=== PATIENT | female | born 1950 ===

== ENCOUNTER 2023-09-10 12:32 | Day surgery (SDC) | payer MEDICARE, OTHER ==
[~2023-09-10] VITALS: Ht 170.2 cm; Wt 70.8 kg
[~2023-09-10 12:32] MED LIST: BALANCED SALT IRRIG ONE; Balanced Salt Epinephrine Irrigation Solution 500 mL IR SCH; Lidocaine HCl/Pf 1% 5 ML VIAL XX SCH; Moxifloxacin HCL 0.5 MG/0.1 ML 0.4MLSYR LEFTEYE SCH; NS 500 ML IV ONE; PHENYLEPHRINE\\TROPICAMIDE\\TETRACAINE OPHTHALMIC DILATING SOLN LEFTEYE PRN; Povidone-Iodine 450 DROP/30 ML Solution LEFTEYE SCH
[2023-09-10] MEDS ORDERED: Simvastatin20 MG PO (13:47)
[2023-09-10] MEDS ORDERED: EUTHYROX75 MC1 PO (13:47)
[2023-09-10] MEDS ORDERED: ESTRADIOL42.5 GM (13:48)
[2023-09-10] MEDS ORDERED: [UNRECOGNIZED DRUG - OTHER] PO (13:48)
[2023-09-10] MEDS ORDERED: CALCIUM PO (13:48)
[2023-09-10] MEDS ORDERED: B COMPLEX VITAMIN (13:49)
[2023-09-10] MEDS ORDERED: SALMON OIL (13:49)
[2023-09-10] MEDS ORDERED: [UNRECOGNIZED DRUG - OTHER] (13:50)
[2023-09-10] MEDS ORDERED: FentaNYL Citrate 50 MCG/ML 2 ML Injection ONE (13:52)
[2023-09-10] MEDS ORDERED: Midazolam HCl 1MG / ML 2ML Vial ONE (13:53)
[2023-09-10] MEDS ORDERED: NS 500 ML IV ONE (14:01)
[2023-09-10] MEDS ORDERED: Tetracaine HCl 0.5% Opth Soln 15 ml LEFTEYE ONE (14:29)
[2023-09-10 14:57] VITALS: BP 140/87
== END 2023-09-10 15:03 | disposition home or self-care (01) ==
LOC: ORSCSDS 12:32
PROVIDERS: Student in an Organized Health Care Education/Training Program
PROC: 08RK3JZ Replacement of Left Lens with Synthetic Substitute, Percutaneous Approach (ICD-10-PCS; principal; 2023-09-10 14:00)
DX: H25.813 Combined forms of age-related cataract, bilateral (principal); H52.202 Unspecified astigmatism, left eye; E03.9 Hypothyroidism, unspecified; E78.5 Hyperlipidemia, unspecified; Z79.899 Other long term (current) drug therapy; Z87.891 Personal history of nicotine dependence
CPT/HCPCS: J2250; J3010; J7040; V2632

== ENCOUNTER 2023-09-24 12:43 | Day surgery (SDC) | payer MEDICARE, OTHER ==
[~2023-09-24] VITALS: Ht 170.2 cm; Wt 70.2 kg
[~2023-09-24 12:43] MED LIST changes: +B COMPLEX VITAMIN; -BALANCED SALT IRRIG ONE; +CALCIUM PO; +ESTRADIOL42.5 GM; +EUTHYROX75 MC1 PO; -Moxifloxacin HCL 0.5 MG/0.1 ML 0.4MLSYR LEFTEYE SCH; +Moxifloxacin HCL 0.5 MG/0.1 ML 0.4MLSYR RIGHTEYE SCH; -PHENYLEPHRINE\\TROPICAMIDE\\TETRACAINE OPHTHALMIC DILATING SOLN LEFTEYE PRN; +PHENYLEPHRINE\\TROPICAMIDE\\TETRACAINE OPHTHALMIC DILATING SOLN RIGHTEYE PRN; -Povidone-Iodine 450 DROP/30 ML Solution LEFTEYE SCH; +Povidone-Iodine 450 DROP/30 ML Solution RIGHTEYE SCH; +SALMON OIL; +Simvastatin20 MG PO; +[UNRECOGNIZED DRUG - OTHER]; +[UNRECOGNIZED DRUG - OTHER] PO
[2023-09-24] MEDS ORDERED: NS 500 ML IV ONE ×2 (12:58)
--- NOTE | 2023-09-24 13:13 | NUR ---
09/24/23 1313 Aura Matias AT [address] AT 1300
[2023-09-24] MEDS ORDERED: FentaNYL Citrate 50 MCG/ML 2 ML Injection ONE (13:32)
[2023-09-24] MEDS ORDERED: Midazolam HCl 1MG / ML 2ML Vial ONE (13:33)
[2023-09-24] MEDS ORDERED: Tetracaine HCl 0.5% Opth Soln 15 ml RIGHTEYE ONE (14:06)
[2023-09-24 14:28] VITALS: BP 132/68
== END 2023-09-24 14:44 | disposition home or self-care (01) ==
LOC: ORSCSDS 12:43
PROVIDERS: Student in an Organized Health Care Education/Training Program
PROC: 08RJ3JZ Replacement of Right Lens with Synthetic Substitute, Percutaneous Approach (ICD-10-PCS; principal; 2023-09-24 14:00)
DX: H25.811 Combined forms of age-related cataract, right eye (principal); H52.201 Unspecified astigmatism, right eye; Z96.1 Presence of intraocular lens; E03.9 Hypothyroidism, unspecified; E78.00 Pure hypercholesterolemia, unspecified; Z79.899 Other long term (current) drug therapy
CPT/HCPCS: J2250; J3010; J7040; V2632